=== PATIENT | female | born 1940 | race Caucasian/White ===

== ENCOUNTER 2017-03-17 08:55 | Outpatient (CLI) | payer MEDICARE, OTHER ==
[2017-03-17 12:59] LABS: Cardiac Risk 3.8 (Less than 4.5)
== END 2017-03-17 08:56 | disposition home or self-care (01) ==
LOC: NAVSJIPCSP 08:55
PROVIDERS: ATTEND Internal Medicine
DX: Z51.81 Encounter for therapeutic drug level monitoring (principal); Z79.899 Other long term (current) drug therapy
CPT/HCPCS: 36415; 80061; 84443

== ENCOUNTER 2017-03-24 09:38 | Outpatient (CLI) | payer MEDICARE, OTHER ==
[2017-03-24 13:03] LABS: Blood, Urine Small (Negative); Clarity Cloudy (Clear); Glucose, Urine (Dipstick) Negative (Negative); Leukocyte Trace (Negative); Nitrite Negative (Negative); Protein, Urine (Dipstick) Trace mg/dL (Neg-Trace); Specific Gravity, Urine 1.025 (1.005-1.030); pH, Urine 5.5 (5.0-9.0)
[2017-03-24 13:13] LABS: Bilirubin Negative (Negative); Icto Negative (Negative)
[2017-03-24 13:22] LABS: Bacteria/HPF Rare-Few HPF (None Seen); RBC/HPF 0-3 HPF (0-3); Squamous Epithelial 0-3 HPF (0-3)
[2017-03-24 13:23] LABS: Crystals/HPF 4+ AMORPH URATES HPF (Negative)
== END 2017-03-24 09:39 | disposition home or self-care (01) ==
LOC: NAVSJIPCSP 09:38
PROVIDERS: ATTEND Internal Medicine
DX: N39.0 Urinary tract infection, site not specified (principal); I10 Essential (primary) hypertension
CPT/HCPCS: 36415; 81003; 81015

== ENCOUNTER 2018-05-12 14:50 | Emergency (ER) | payer MEDICARE | END 2018-05-12 15:40 | disposition home or self-care (01) | LOC: NAV ERS 14:50 | DX: M54.42 Lumbago with sciatica, left side (principal); E03.9 Hypothyroidism, unspecified; E78.5 Hyperlipidemia, unspecified; I10 Essential (primary) hypertension; Z87.891 Personal history of nicotine dependence; Z79.899 Other long term (current) drug therapy; Z79.82 Long term (current) use of aspirin | CPT/HCPCS: 99283 ==

== ENCOUNTER 2018-08-16 15:40 | Outpatient (CLI) | payer MEDICARE ==
--- NOTE | 2018-08-16 17:31 | CT ---
CT OF THE LEFT KNEE WITHOUT CONTRAST: 08/16/18 INDICATION: Left leg pain. COMPARISON: None. FINDINGS: No acute fracture or subluxation is evident. There is diffuse osteopenia. There is mild osteoarthrosi s predominantly affecting the patellofemoral compartment. IMPRESSION: No acute osseous abnormality. POS: [facility]
--- NOTE | 2018-08-16 17:34 | CT ---
NONCONTRAST CT OF THE LUMBAR SPINE 08/16/18 INDICATION: History of low back pain and sciatica. COMPARISON: Lumbar spine radiograph dated 08/06/18. FINDINGS: There is slight anterior translation of L3 on L4. There is diffuse osteopenia. There is mild multilev el degenerative disease. There is moderate facet osteoarthrosis at L3-4 through L5-S1. No acute fract ure is evident. No appreciable osseous central canal or neural foraminal narrowing is grossly evident . There are vascular calcifications involving the abdominal aorta. There is mild degenerative changes of both SI joints. IMPRESSION: 1. No acute osseous abnormality. 2. Mild to moderate spondylosis of the lumbar spine with grade I anterolisthesis of L3 on L4. POS: [facility]
== END 2018-08-16 15:41 | disposition home or self-care (01) ==
LOC: NAV RAD 15:40
PROVIDERS: ATTEND Internal Medicine
DX: M54.32 Sciatica, left side (principal); M47.816 Spondylosis without myelopathy or radiculopathy, lumbar region; M43.16 Spondylolisthesis, lumbar region
CPT/HCPCS: 72131